=== PATIENT | female | born 1945 | race American Indian/Alaskan Native ===

== ENCOUNTER 2017-03-22 18:11 | Emergency (ER) | payer MEDICARE ==
[2017-03-22] MEDS ORDERED: FLONASE NS ONE (22:11)
[2017-03-22] MEDS ORDERED: ANTIVERT PO ONE (22:11)
[2017-03-22] MEDS ORDERED: TYLENOL PO ONE (22:11)
--- NOTE | 2017-03-22 22:13 | Emergency Department Report ---
ED General Adult HPI - General Chief complaint: Headache Stated complaint: HEADACHE Time Seen by Provider: 03/22/17 21:57 Source: patient, RN notes reviewed Mode of arrival: Ambulatory Limitations: No Limitations - History of Present Illness Initial comments: This is a 71-year-old female who was previously unknown to this provider. She endorses a past medical history of hypertension. She presents to the ER with a sensation of head pressure, head fullness, "head swimming", which has been present since yesterday. The symptoms are intermittent. They improve when she sits down, they worsen when she stands up and leans forward. She specifically denies sudden and thunderclap headache, she denies neck pain or neck stiffness. She also denies tinnitus, change in auditory acuity, she missed a recent cold symptoms including stuffy nose and sore throat and mucus production. She denies chest pain, shortness of breath, extremity weakness/numbness, and she also endorses a sensation of palpitations. The symptoms do not radiate anywhere. Patient reports her head discomfort is not sudden or thunderclap in nature, did not reach maximal intensity within an hour, and it is not the worst discomfort that she's had in her life of her head. The patient indicates no temporal pain , no change in visual acuity, and no difficulty with chewing and swallowing. -: Gradual Location: head Quality: aching Consistency: intermittent Improves with: rest Worsens with: movement Associated Symptoms: cough, headaches, malaise. denies: confusion, chest pain, rash, seizure - Related Data Previous Rx's Medication Instructions Recorded Last Taken Type Fluticasone [Flonase] 1 spray NS QDAY #1 bottle 03/23/17 Unknown Rx Ibuprofen [Motrin] 600 mg PO Q8H PRN #30 tablet 03/23/17 Unknown Rx Meclizine [Antivert] 25 mg PO TID PRN #15 tablet 03/23/17 Unknown Rx Allergies Allergy/AdvReac Type Severity Reaction Status Date / Time No Known Allergies Allergy Verified 03/22/17 18:26 ED Review of Systems ROS: Stated complaint: HEADACHE Other details as noted in HPI Constitutional: malaise Eyes: denies: eye discharge ENT: throat pain, congestion Respiratory: see HPI. denies: wheezing Cardiovascular: palpitations. denies: chest pain Gastrointestinal: denies: vomiting Genitourinary: as per HPI Musculoskeletal: as per HPI Skin: as per HPI Neurological: headache Psychiatric: anxiety ED Past Medical Hx - Past Medical History Hx Hypertension: Yes - Surgical History Past Surgical History?: No - Social History Smoking Status: Never Smoker Substance Use Type: None - Medications Home Medications: Home Medications Medication Instructions Recorded Confirmed Last Taken Type Fluticasone [Flonase] 1 spray NS QDAY #1 bottle 03/23/17 Unknown Rx Ibuprofen [Motrin] 600 mg PO Q8H PRN #30 tablet 03/23/17 Unknown Rx Meclizine [Antivert] 25 mg PO TID PRN #15 tablet 03/23/17 Unknown Rx ED Physical Exam - General Limitations: No Limitations General appearance: alert, in no apparent distress - Head Head exam: Present: atraumatic, normocephalic, other (there is no temporal tenderness) - Eye Eye exam: Present: normal appearance, PERRL, EOMI, other (visual acuity intact to finger counting, color perception, reading at a close distance). Absent: nystagmus - ENT ENT exam: Present: normal exam, normal orophraynx, mucous membranes moist, TM's normal bilaterally, normal external ear exam, other (there is no mastoid tenderness. There are no vesicles) - Neck Neck exam: Present: normal inspection, full ROM - Respiratory Respiratory exam: Present: normal lung sounds bilaterally. Absent: respiratory distress - Cardiovascular Cardiovascular Exam: Present: regular rate, normal rhythm, normal heart sounds. Absent: bradycardia, tachycardia, irregular rhythm, systolic murmur, diastolic murmur, rubs, gallop - GI/Abdominal GI/Abdominal exam: Present: soft, normal bowel sounds. Absent: distended, tenderness, guarding, rebound, rigid, pulsatile mass - Extremities Exam Extremities exam: Present: normal inspection, full ROM, normal capillary refill. Absent: pedal edema, joint swelling, calf tenderness - Back Exam Back exam: Present: normal inspection, full ROM. Absent: tenderness, CVA tenderness (R), CVA tenderness (L), muscle spasm, paraspinal tenderness, vertebral tenderness - Neurological Exam Neurological exam: Present: alert, oriented X3, CN II-XII intact, normal gait ( no past pointing. Normal clib-wq-fevs. Negative pronator drift. Negative Romberg examination), other (Extraocular movements intact. Tongue midline. No facial droop. Facial sensation intact to light touch in the V1, V2, V3 distribution bilaterally. 5 and 5 strength in 4 extremities.. Sensation is intact to light touch in 4 extremities.). Absent: motor sensory deficit - Psychiatric Psychiatric exam: Present: anxious - Skin Skin exam: Present: warm, dry, intact, normal color. Absent: rash ED Course Vital Signs 03/22/17 03/22/17 03/22/17 18:26 22:10 22:16 Temperature 97.5 F L Pulse Rate 75 64 55 L Respiratory 20 14 Rate Blood Pressure 175/93 159/80 Blood Pressure [Right] O2 Sat by Pulse 97 99 99 Oximetry 03/22/17 03/22/17 03/22/17 22:25 22:30 22:31 Temperature 97.6 F Pulse Rate 58 L 55 L Respiratory 18 15 16 Rate Blood Pressure 159/81 Blood Pressure 159/81 [Right] O2 Sat by Pulse 100 97 Oximetry 03/22/17 03/22/17 03/22/17 23:02 23:16 23:30 Temperature Pulse Rate 65 63 69 Respiratory 13 11 L 17 Rate Blood Pressure 159/81 169/81 Blood Pressure [Right] O2 Sat by Pulse 100 100 Oximetry 03/22/17 03/23/17 03/23/17 23:45 00:00 00:15 Temperature Pulse Rate 57 L 61 58 L Respiratory 17 13 18 Rate Blood Pressure 138/77 149/82 149/82 Blood Pressure [Right] O2 Sat by Pulse 100 99 83 L Oximetry 03/23/17 03/23/17 00:31 00:45 Temperature Pulse Rate 56 L 68 Respiratory 14 18 Rate Blood Pressure 143/77 180/94 Blood Pressure [Right] O2 Sat by Pulse 100 100 Oximetry - Reevaluation(s) Reevaluation #1: 03/22/17 22:25 Differential diagnosis, including but not limited to: Labyrinthitis, peripheral vestibulopathy, sinusitis, migraine headache, tension headache, cluster headache Assessment and plan: 71-year-old female who describes head pressure, nonspecific sensation of movement which is not described as vertiginous in nature, with a normal neurologic examination without any cerebellar signs or posterior circulation signs, the patient also has a negative HinTS exam; the patient does deny sensation of constant vertigo. The patient's history and physical do not appear to be consistent with stroke or arrhythmia, however given his advanced age and presence of hypertension, we will obtain noncontrast CT scan of the brain to exclude atypical presentation of intracranial hemorrhage. There is no temporal tenderness or jaw claudication or visual complaint, therefore think temporal arteritis very unlikely. The patient's symptoms will be treated symptomatically. Reevaluation #2: 03/23/17 00:39 The patient reports that she feels improved. Vital signs are improved. Noncontrast CT scan of the brain negative for acute findings, however there is a single solitary lytic lesion noted on the right parietal bone. Patient is given a copy of her CT scan report and laboratory studies, and she is instructed to follow-up with her outpatient primary care doctor for further evaluation and management. Return process are reviewed. ED Medical Decision Making - Lab Data Result diagrams: 03/22/17 23:06 03/22/17 23:06 Vital Signs 03/22/17 18:26 Temperature 97.5 F L Pulse Rate 75 Respiratory 20 Rate Blood Pressure 175/93 O2 Sat by Pulse 97 Oximetry - EKG Data -: EKG Interpreted by Ia - EKG Data When compared to previous EKG there are: previous EKG unavailable 03/22/17 22:28 Sinus bradycardia, 48 bpm, normal axis, Q waves noted in 3, prominent R-wave in aVR, abnormal EKG, but morphologically consistent with ST elevation myocardial infarction; patient endorses no chest pain. - Radiology Data Radiology results: pending, report reviewed, image reviewed Noncontrast CT scan of the brain negative for acute findings, there is a solitary lytic lesion in the right parietal bone. Cannot exclude lytic metastatic lesion or myeloma. Critical care attestation.: If time is entered above; I have spent that time in minutes in the direct care of this critically ill patient, excluding procedure time. ED Disposition Clinical Impression: Pressure in head, Elevated blood pressure reading Disposition: DC-01 TO HOME OR SELFCARE Is pt being admited?: No Does the pt Need Aspirin: No Condition: Stable Additional Instructions: Please note that blood pressure was elevated. This should be followed up by a primary care doctor within the next 2-3 weeks. Long-term complications of hypertension includes stroke, heart attack, disability, , paralysis, loss of quality of life. Therefore it is very important to follow-up in outpatient primary care doctor for your elevated blood pressure. Please follow up with a primary care doctor as recommended. Take the medications as needed/directed. Please note that CT scan demonstrated nonspecific lesion on the right parietal bone, and this needs to be followed up by her primary care doctor within the next month. Not following up as recommended and a resultant undiagnosed tumor, cancer, malignancy. Dr. Castañeda is a local primary care doctor. Dr. Rhodes is a local drilling field specialist. Return to the ER right away with new pain, worsened pain, migration of pain, fevers, chills, lethargy, irritability, projectile vomiting, change in mental status, confusion, inability to tolerate liquid feeds. Prescriptions: Fluticasone [Flonase] 1 spray NS QDAY #1 bottle Ibuprofen [Motrin] 600 mg PO Q8H PRN #30 tablet PRN Reason: Pain Meclizine [Antivert] 25 mg PO TID PRN #15 tablet PRN Reason: Vertigo Referrals: PRIMARY CAREMD [Primary Care Provider] - 3-5 Days ZULEMA CASTAÑEDA MD [Staff Physician] - 3-5 Days HARPER RHODES MD [Staff Physician] - 3-5 Days
--- NOTE | 2017-03-22 23:10 | Cat Scan Report ---
FINAL REPORT PROCEDURE: CT HEAD/BRAIN WO CON TECHNIQUE: Computerized tomography of the head was performed without contrast material. Negative HISTORY: head pressure, palacios COMPARISON: No prior studies are available for comparison. FINDINGS: Brain: Brain density appears normal. No evidence of intracranial hemorrhage. No parenchymal hemorrhage, mass lesions or mass effect are seen. No abnormal extraxial fluid collects or masses are seen. Ventricles: Ventricles are normal size and are midline. Bone Windows: No evidence of skull fracture. There is a solitary lytic lesion in the right parietal bone posteriorly image 44 series 3 measuring 11 millimeters. This has well-defined margins although appears to be eroding the other table. The skull is otherwise unremarkable. Paranasal sinuses: Clear Mastoid air cells: Clear IMPRESSION: Negative unenhanced CT of the brain. Solitary lytic lesion right parietal bone. This has sharply defined margins although appears to be partially eroding the outer table.. I cannot exclude a lytic metastatic lesion or myeloma. If clinically indicated nuclear medicine bone scan could be performed to evaluate for abnormal metabolic activity.
[2017-03-22 23:16] LABS: Hemoglobin 14.3 gm/dl (10.1-14.3); White Blood Count 6.4 K/mm3 (4.5-11.0)
[2017-03-22 23:19] LABS: Hematocrit 42.5 % (30.3-42.9); Mean Corpuscular HGB Conc 33 % (30-34); Mean Corpuscular Hemoglobin 32 pg (28-32); Mean Corpuscular Volume 97 fl (79-97); Platelet Count 334 K/mm3 (140-440); Red Blood Count 4.37 M/mm3 (3.65-5.03); Red Cell Distribution Width 13.4 % (13.2-15.2)
[2017-03-22 23:35] LABS: Anion Gap 14 mmol/L; BUN/Creatinine Ratio 20; Blood Urea Nitrogen 8 mg/dL (7-17); Calcium 9.2 mg/dL (8.4-10.2); Carbon Dioxide 25 mmol/L (22-30); Chloride 101.1 mmol/L (98-107); Glucose 99 mg/dL (65-100); Potassium 3.6 mmol/L (3.6-5.0); Sodium 136 mmol/L (137-145)
[2017-03-23 00:57] VITALS: BP 180/94
== END 2017-03-23 01:13 | disposition home or self-care (01) ==
LOC: ED 18:11
DX: R51 Headache (principal); I10 Essential (primary) hypertension
CPT/HCPCS: 36415; 70450; 80048; 83735; 84443; 85027; 93005; 93010

== ENCOUNTER 2019-03-08 09:10 | Outpatient (CLI) | payer MEDICARE ==
--- NOTE | 2019-03-08 13:17 | Mammography Report ---
DIGITAL SCREENING MAMMOGRAM WITH CAD, 03/08/2019 INDICATION: Routine screening mammography. TECHNIQUE: Digital bilateral 2D mammography was obtained in the craniocaudal and mediolateral obliq ue projections. This examination was interpreted with the benefit of Computer-Aided Detection analysi s. COMPARISON: 03/03/2018 FINDINGS: Breast Density: The breasts are almost entirely fatty. There is no evidence of dominant mass, suspicious calcifications or architectural distortion in eithe r breast. IMPRESSION: No mammographic evidence of malignancy. Follow up recommendation: Routine yearly BI-RADS Category 1: Negative. A "normal" or negative report should not discourage follow up or biopsy of a clinically significant f inding. A written summary of these findings will be mailed to the patient. The patient will be entered into a mammography reporting system which will generate a reminder letter for the patient's next appointmen t at the appropriate interval. The [employer] recommends yearly mammograms starting at age 40 and continuing as l [place] as a woman is in good health. Breast MRI is recommended for women with an approximate 20-25% or greater lifetime risk of breast cancer, including women with a strong family history of breast or ova eder cancer or who have been treated for Hodgkin's disease. Signer Name: Eliezer Joseph MD Signed: 03/08/2019 1:13 PM Workstation Name: [id number]
== END 2019-03-08 09:11 | disposition home or self-care (01) ==
LOC: MAMMO 09:10
PROVIDERS: ATTEND Family Medicine
DX: Z12.31 Encounter for screening mammogram for malignant neoplasm of breast (principal)
CPT/HCPCS: 77067

== ENCOUNTER 2020-03-11 10:16 | Outpatient (CLI) | payer MEDICARE ==
--- NOTE | 2020-03-12 07:55 | Mammography Report ---
BILATERAL DIGITAL SCREENING MAMMOGRAM WITH CAD HISTORY: SCREENING MAMMO TECHNIQUE: Routine digital mammographic imaging performed. This examination was interpreted with suzette [place] benefit of Computer-aided Detection analysis. COMPARISON: 03/08/2019, 03/03/2018, 03/02/2017. FINDINGS: Breast Density: predominantly fatty breast parenchymal pattern. Digital CC and MLO views demonstrate no mammographic evidence of malignancy. IMPRESSION: No mammographic evidence of malignancy. If the clinical examination remains stable, recommend bilate ral mammogram in approximately one year. BIRADS 1: Negative. FURTHER INFORMATION: According to the [employer], yearly mammograms are recommend ed starting at age 40 and continuing as long as a woman is in good health. Clinical Breast Exams shou ld be part of a periodic health exam-about every 3 years for women in their 20s and 30s and every yea r for women 40 and over. Breast self exam is an option for women starting in their 20s. Any breast ch garry noted on a breast self exam should be reported promptly to the patient's healthcare provider. Br east MRI is recommended for women with an approximately 20-25% or greater lifetime risk of breast can cer, including women with a strong family history of breast or ovarian cancer and women who have been treated for Hodgkin's disease. A negative Mammography report should not discourage follow up or biopsy of a clinically significant f inding and/or abnormality. Dense breast tissue may obscure small neoplasms. The patient will be entered into a reminder system with a target due date for the next screening mamm ogram. Signer Name: Levi Rodríguez MD Signed: 03/12/2020 7:54 AM Workstation Name: [id number]
== END 2020-03-11 10:17 | disposition home or self-care (01) ==
LOC: MAMMO 10:16
PROVIDERS: ATTEND Family Medicine
DX: Z12.31 Encounter for screening mammogram for malignant neoplasm of breast (principal)
CPT/HCPCS: 77067

== ENCOUNTER 2020-09-18 01:04 | Emergency (ER) | payer MEDICARE ==
[2020-09-18 01:38] LABS: Basophils % (Auto) 0.4 % (0.0-1.8); Eosinophils % (Auto) 0.4 % (0.0-4.3); Hematocrit 43.8 % (30.3-42.9); Hemoglobin 14.9 gm/dl (10.1-14.3); Lymphocytes # (Auto) 1.7 K/mm3 (1.2-5.4); Lymphocytes % (Auto) 15.8 % (13.4-35.0); Mean Corpuscular HGB Conc 34 % (30-34); Mean Corpuscular Volume 95 fl (79-97); Monocytes # (Auto) 0.7 K/mm3 (0.0-0.8); Monocytes % (Auto) 6.9 % (0.0-7.3); Platelet Count 365 K/mm3 (140-440); Red Cell Distribution Width 14.1 % (13.2-15.2)
[2020-09-18 02:00] LABS: Alanine Aminotransferase 16 units/L (7-56); Albumin 4.6 g/dL (3.9-5); Blood Urea Nitrogen 12 mg/dL (7-17); Calcium 9.7 mg/dL (8.4-10.2); Hemolysis Index 2
[2020-09-18 02:11] LABS: BUN/Creatinine Ratio 20
[2020-09-18 02:49] LABS: Bilirubin,Urine NEG (Negative); Blood,Urine NEG (Negative); Color,Urine Straw (Yellow); Protein,Urine <15 mg/dL mg/dL (Negative); Urobilinogen,Urine < 2.0 mg/dL (<2.0); WBC,Urine < 1.0 /HPF (0.0-6.0)
--- NOTE | 2020-09-18 04:46 | Cat Scan Report ---
CT ABDOMEN AND PELVIS WITH CONTRAST INDICATION: Pt complains of abdominal pain with cramps and diarrhea CONTRAST: 100 cc Omnipaque 300 IV COMPARISON: None available. All CT scans at this location are performed using CT dose reduction for ALARA by means of automated e xposure control. FINDINGS: Lung bases are clear. No pneumoperitoneum is seen. Multiple cysts and probable cysts are se en in the liver with a tiny probable cyst in the left kidney. No other masses are seen. Minimal hiata l hernia is noted. Mild colonic diverticulosis is seen without evidence of diverticulitis. The left c olon has an abnormal appearance with moderate wall thickening seen diffusely. This is not in an area of obvious diverticulosis. This is not seen in other portions of the colon. Right colon shows a moder ate amount of stool. Appendix appears within normal limits. No small bowel abnormalities are seen. No evidence of bowel obstruction is noted. No evidence of perforation or abscess is seen. No urinary ob structive changes are noted. No free fluid is seen. IMPRESSION: Evidence of left-sided colitis without complication Signer Name: Alvin Marsh MD Signed: 09/18/2020 4:41 AM Workstation Name: [id number]
--- NOTE | 2020-09-18 06:43 | Emergency Department Report ---
HPI - General Chief Complaint: Abdominal Pain Time Seen by Provider: 09/18/20 06:21 - HPI HPI: Room 21 The patient is a 74-year-old female present with a chief complaint of abdominal cramping and diarrhea. The patient states her symptoms began yesterday evening at approximately 1800. Patient states she developed lower abdominal pain described as intermittent cramping. The patient states she tried to have a bowel movement and became diaphoretic while having a bowel movement. Patient states she eventually had a normal bowel movement with normal stool. Later the patient again had the urge to have a bowel movement this time with diarrhea. Patient states she noted some blood stains in her underpants after this episode and called her insurance company's nurse line. She states the nurse instructed her to wipe her vagina and her buttock to see if she could determine where the blood was coming from. The patient did this but noticed no blood. The patient states later in the evening she had another bowel movement and noticed blood in the toilet bowl prompting her to come to the emergency department. Patient has not had any episodes of diarrhea since in the ED. Patient denies any recent antibiotic use. Patient denies any history of fever. When asked how she is feeling right now the patient states she just has a dull annoying sensation in her lower abdomen but is otherwise okay. Patient states her last colonoscopy occurred approximately 10 years ago ED Past Medical Hx - Past Medical History Hx Hypertension: Yes - Surgical History Past Surgical History?: No - Family History Family history: no significant - Social History Smoking Status: Never Smoker Substance Use Type: Alcohol (Frequently) - Medications Home Medications: Home Medications Medication Instructions Recorded Confirmed Last Taken Type Fluticasone [Flonase] 1 spray NS QDAY #1 bottle 03/23/17 Unknown Rx Ibuprofen [Motrin] 600 mg PO Q8H PRN #30 tablet 03/23/17 Unknown Rx Meclizine [Antivert] 25 mg PO TID PRN #15 tablet 03/23/17 Unknown Rx HYDROcodone/APAP 5-325 [Mccormick 1 each PO Q6HR PRN #10 tablet 09/18/20 Unknown Rx 5/325] levoFLOXacin [Levaquin TAB] 500 mg PO QDAY #7 tablet 09/18/20 Unknown Rx metroNIDAZOLE [Flagyl] 500 mg PO Q8HR #21 tablet 09/18/20 Unknown Rx ED Review of Systems ROS: Stated complaint: ABD PAIN,CRAMPS,BLEEDING, DIARRHEA Other details as noted in HPI Constitutional: denies: fever Eyes: denies: eye pain ENT: denies: throat pain Respiratory: no symptoms reported Cardiovascular: denies: chest pain Endocrine: no symptoms reported Gastrointestinal: abdominal pain, diarrhea, hematochezia. denies: nausea, vomiting Genitourinary: denies: dysuria Musculoskeletal: denies: back pain Neurological: denies: headache Physical Exam - Physical Exam Vital Signs: Vital Signs 09/18/20 09/18/20 09/18/20 01:06 03:30 03:31 Temperature 98.4 F 98.2 F Pulse Rate 86 66 67 Respiratory 18 14 14 Rate Blood Pressure 149/77 149/72 Blood Pressure 149/72 [Right] O2 Sat by Pulse 96 100 100 Oximetry 09/18/20 09/18/20 09/18/20 03:45 04:41 04:45 Temperature Pulse Rate 67 81 78 Respiratory 12 24 15 Rate Blood Pressure 145/68 155/47 155/47 Blood Pressure [Right] O2 Sat by Pulse 100 99 100 Oximetry 09/18/20 09/18/20 09/18/20 05:01 05:15 05:31 Temperature Pulse Rate 70 81 68 Respiratory 16 14 16 Rate Blood Pressure 147/52 141/45 139/49 Blood Pressure [Right] O2 Sat by Pulse 99 100 99 Oximetry 09/18/20 05:45 Temperature Pulse Rate 68 Respiratory 15 Rate Blood Pressure 134/44 Blood Pressure [Right] O2 Sat by Pulse 99 Oximetry Physical Exam: GENERAL: The patient is well-developed well-nourished female lying on stretcher not appearing to be in acute distress. [] HEENT: Normocephalic. Atraumatic. Extraocular motions are intact. Patient has moist mucous membranes. NECK: Supple. Trachea midline CHEST/LUNGS: Clear to auscultation. There is no respiratory distress noted. HEART/CARDIOVASCULAR: Regular. There is no tachycardia. There is no gallop rub or murmur. ABDOMEN: Abdomen is soft, with trace discomfort to the suprapubic and left lower quadrant. There is no rebound or guarding. Patient has normal bowel sounds. There is no abdominal distention. SKIN: There is no rash. There is no edema. There is no diaphoresis. NEURO: The patient is awake, alert, and oriented. The patient is cooperative. The patient has no focal neurologic deficits. The patient has normal speech MUSCULOSKELETAL: There is no evidence of acute injury. ED Course Vital Signs 09/18/20 09/18/20 09/18/20 01:06 03:30 03:31 Temperature 98.4 F 98.2 F Pulse Rate 86 66 67 Respiratory 18 14 14 Rate Blood Pressure 149/77 149/72 Blood Pressure 149/72 [Right] O2 Sat by Pulse 96 100 100 Oximetry 09/18/20 09/18/20 09/18/20 03:45 04:41 04:45 Temperature Pulse Rate 67 81 78 Respiratory 12 24 15 Rate Blood Pressure 145/68 155/47 155/47 Blood Pressure [Right] O2 Sat by Pulse 100 99 100 Oximetry 09/18/20 09/18/20 09/18/20 05:01 05:15 05:31 Temperature Pulse Rate 70 81 68 Respiratory 16 14 16 Rate Blood Pressure 147/52 141/45 139/49 Blood Pressure [Right] O2 Sat by Pulse 99 100 99 Oximetry 09/18/20 05:45 Temperature Pulse Rate 68 Respiratory 15 Rate Blood Pressure 134/44 Blood Pressure [Right] O2 Sat by Pulse 99 Oximetry ED Medical Decision Making - Lab Data Result diagrams: 09/18/20 01:10 09/18/20 01:10 Laboratory Tests 09/18/20 09/18/20 09/18/20 01:10 01:10 Unknown WBC 10.7 RBC 4.60 Hgb 14.9 H Hct 43.8 H MCV 95 MCH 32 MCHC 34 RDW 14.1 Plt Count 365 Lymph % (Auto) 15.8 Saline % (Auto) 6.9 Eos % (Auto) 0.4 Baso % (Auto) 0.4 Lymph # (Auto) 1.7 Saline # (Auto) 0.7 Eos # (Auto) 0.0 Baso # (Auto) 0.0 Seg Neutrophils % 76.5 H Seg Neutrophils # 8.2 H Sodium 140 Potassium 4.0 Chloride 101.8 Carbon Dioxide 27 Anion Gap 15 BUN 12 Creatinine 0.6 Estimated GFR > 60 BUN/Creatinine Ratio 20 Glucose 124 H Calcium 9.7 Total Bilirubin 0.30 AST 18 ALT 16 Alkaline Phosphatase 72 Total Protein 7.0 Albumin 4.6 Albumin/Globulin Ratio 1.9 Urine Color Straw Urine Turbidity Clear Urine pH 7.0 Ur Specific Anderson 1.008 Urine Protein <15 mg/dl Urine Glucose (UA) Neg Urine Ketones Neg Urine Blood Neg Urine Nitrite Neg Urine Bilirubin Neg Urine Urobilinogen < 2.0 Ur Leukocyte Esterase Neg Urine WBC (Auto) < 1.0 Urine RBC (Auto) 1.0 U Epithel Cells (Auto) < 1.0 - Radiology Data Radiology results: report reviewed (CT abdomen pelvis), image reviewed (CT abdomen pelvis) [facility] [address] [place] [address] Cat Scan Report Signed Patient: CYRUS VALE MR#: [id number] : 1945 Acct:[id number] Age/Sex: 74 / F ADM Date: 09/18/20 Loc: ED Attending Dr: Ordering Physician: GAVI LORA MD Date of Service: 09/18/20 Procedure(s): CT abdomen pelvis w con Accession Number(s): [id number] cc: GAVI LORA MD CT ABDOMEN AND PELVIS WITH CONTRAST INDICATION: Pt complains of abdominal pain with cramps and diarrhea CONTRAST: 100 cc Omnipaque 300 IV COMPARISON: None available. All CT scans at this location are performed using CT dose reduction for ALARA by means of automated exposure control. FINDINGS: Lung bases are clear. No pneumoperitoneum is seen. Multiple cysts and probable cysts are seen in the liver with a tiny probable cyst in the left kidney. No other masses are seen. Minimal hiatal hernia is noted. Mild colonic diverticulosis is seen without evidence of diverticulitis. The left colon has an abnormal appearance with moderate wall thickening seen diffusely. This is not in an area of obvious diverticulosis. This is not seen in other portions of the colon. Right colon shows a moderate amount of stool. Appendix appears within normal limits. No small bowel abnormalities are seen. No evidence of bowel obstruction is noted. No evidence of perforation or abscess is seen. No urinary obstructive changes are noted. No free fluid is seen. IMPRESSION: Evidence of left-sided colitis without complication Signer Name: Alvin Marsh MD Signed: 09/18/2020 4:41 AM Workstation Name: [id number] Transcribed By: FRANK Dictated By: Alvin Marsh MD Electronically Authenticated By: Alvin Marsh MD Signed Date/Time: 09/18/20 7786 DD/ [id number] TD/TT: Print Cancel - Differential Diagnosis Enteritis, colitis, diverticulitis, UTI Critical care attestation.: If time is entered above; I have spent that time in minutes in the direct care of this critically ill patient, excluding procedure time. ED Disposition Clinical Impression: Acute colitis, Acute abdominal pain Disposition: TO HOME OR SELFCARE Is pt being admited?: No Does the pt Need Aspirin: No Condition: Stable Instructions: Abdominal Pain (ED), Abdominal Pain, Adult, [id number], Colitis Additional Instructions: Return to the emergency department should you develop worsening symptoms, inability to tolerate food or liquids, high fever or any other concerns Prescriptions: metroNIDAZOLE [Flagyl] 500 mg PO Q8HR #21 tablet levoFLOXacin [Levaquin TAB] 500 mg PO QDAY #7 tablet HYDROcodone/APAP 5-325 [Mccormick 5/325] 1 each PO Q6HR PRN #10 tablet PRN Reason: Pain Referrals: PRIMARY CARE, [Primary Care Provider] - 3-5 Days KODY SERRA MD [Staff Physician] - 3-5 Days (Dr. Serra is a design sales consultant. Please follow-up with him for further evaluation) Time of Disposition: 06:46
[2020-09-18 07:15] VITALS: BP 143/71
== END 2020-09-18 07:16 | disposition home or self-care (01) ==
LOC: ED 01:04
DX: K52.9 Noninfective gastroenteritis and colitis, unspecified (principal); R10.30 Lower abdominal pain, unspecified; I10 Essential (primary) hypertension; Z79.899 Other long term (current) drug therapy
CPT/HCPCS: 36415; 74177; 80053; 81001; 85025; 99284; Q9967

== ENCOUNTER 2021-03-12 10:23 | Outpatient (CLI) | payer MEDICARE ==
--- NOTE | 2021-03-12 16:42 | Mammography Report ---
DIGITAL SCREENING MAMMOGRAM WITH CAD, 03/12/2021 CLINICAL INFORMATION / INDICATION: Routine screening mammography. SCREENING MAMMOGRAM TECHNIQUE: Digital bilateral 2D mammography was obtained in the craniocaudal and mediolateral obliqu e projections. This examination was interpreted with the benefit of Computer-Aided Detection analysis . COMPARISON: 03/11/2020 FINDINGS: Breast Density: There are scattered areas of fibroglandular density. No dominant mass, suspicious calcifications, or architectural distortion in either breast. IMPRESSION: No mammographic evidence of malignancy. Follow up recommendation: Routine yearly BI-RADS Category 1: Negative. A "normal" or negative report should not discourage follow up or biopsy of a clinically significant f inding. A written summary of these findings will be mailed to the patient. The patient will be entered into a mammography reporting system which will generate a reminder letter for the patient's next appointmen t at the appropriate interval. The [employer] recommends yearly mammograms starting at age 40 and continuing as l cleopatra as a woman is in good health. Breast MRI is recommended for women with an approximate 20-25% or greater lifetime risk of breast cancer, including women with a strong family history of breast or ova eder cancer or who have been treated for Hodgkin's disease. Signer Name: Elvis Castellanos MD Signed: 03/12/2021 4:38 PM Workstation Name: [id number]
== END 2021-03-12 10:24 | disposition home or self-care (01) ==
LOC: MAMMO 10:23
PROVIDERS: ATTEND Family Medicine
DX: Z12.31 Encounter for screening mammogram for malignant neoplasm of breast (principal)
CPT/HCPCS: 77067